=== PATIENT | male | born 1960 | race Caucasian/White ===

== ENCOUNTER 2019-03-11 08:54 | Day surgery (SDC) | payer BC, MEDICARE ==
[2019-03-11] MEDS ORDERED: Ketamine HCl 50 MG/ML IV ONE (08:55)
[2019-03-11] MEDS ORDERED: LIDOCAINE HCL 2% 100 MG/5 ML IJ ONE (08:55)
[2019-03-11] MEDS ORDERED: DIPRIVAN 200 MG/20 ML IV ONE (08:55)
[2019-03-11] MEDS ORDERED: Depo-Medrol 40 MG/ML IM ONE (08:55)
[2019-03-11] MEDS ORDERED: XYLOCAINE 1% HCL 20 ML MDV IJ ONE (08:55)
[2019-03-11] MEDS ORDERED: Xylocaine 1% Vial 30 ML PF IJ ONE (08:55)
--- NOTE | 2019-03-11 12:22 | XRAY ---
Indication: Bilateral L4-S1 MBB. Intraoperative fluoroscopy was provided for 12 seconds. Single digital spot image submitted for interpretation demonstrates posterior needle tips projecting over the expected course of the left and right L4-S1 nerve roots. Correlate with intraoperative findings/report.
--- NOTE | 2019-03-11 12:32 | XRAY ---
12 seconds fluoroscopy time in surgery for bilateral L4-S1 MBB.
[2019-03-11] MEDS ORDERED: Lactated Ringers 1,000 ML IV ONE (13:47)
== END 2019-03-11 11:25 | disposition home or self-care (01) ==
LOC: SDC-PAIN 08:54
PROVIDERS: ATTEND Psychiatry & Neurology Pain Medicine
DX: M47.816 Spondylosis without myelopathy or radiculopathy, lumbar region (principal); K21.9 Gastro-esophageal reflux disease without esophagitis; F43.10 Post-traumatic stress disorder, unspecified; F41.8 Other specified anxiety disorders; Z79.899 Other long term (current) drug therapy
CPT/HCPCS: 64493; 64494; 72020; 77002; J1030; J2001; J2704